=== PATIENT | female | born 1960 | race Caucasian/White ===

== ENCOUNTER 2020-06-01 09:59 | Inpatient (IN) | payer MEDICAID ==
[~2020-06-01] VITALS: Ht 160 cm; Wt 87.5 kg
[2020-06-01 10:58] LABS: CHLORIDE 109 mEq/L (98-107)
[2020-06-01 11:00] LABS: BASOPHILS % 0.9 % (0.0-2.0); EOSINOPHILS % 2.4 % (0.0-5.0); HEMATOCRIT. 24.9 % (36.0-48.0); HEMOGLOBIN. 8.1 g/dL (12.0-16.0); LYMPHOCYTES % 20.9 % (20.0-50.0); MEAN CORPUSCULAR HEMOGLOBIN 31.7 pg (28.0-32.0); MEAN CORPUSCULAR VOLUME 97.3 fL (81.0-99.0); MEAN PLATELET VOLUME 10.7 fl (7.4-10.4); MONOCYTES % 10.4 % (2.0-8.0); NEUTROPHILS % 65.4 % (40.0-76.0); PLATELET 123 x1000/uL (130-400); RED BLOOD CELL COUNT 2.56 mill/uL (4.2-5.4); RED CELL DISTRIBUTION WIDTH 18.4 % (11.6-14.6)
[2020-06-01 11:02] LABS: ETHANOL BLOOD < 10 mg/dL
[2020-06-01 11:30] LABS: INR 1.4; PROTHROMBIN TIME 14.7 sec (9.6-11.0)
[2020-06-01] MEDS ORDERED: LACTULOSE 20G/30ML UDC NG ONE (11:30)
[2020-06-01] MEDS ORDERED: ONDANSETRON HCL 4MG/2ML INJ IV PRN (13:30)
[2020-06-01] MEDS ORDERED: LORAZEPAM 2MG/ML CPJ IV PRN (13:30)
[2020-06-01] MEDS: DEXT 5%/0.45% NACL 1000ML 1,000 ML IV SCH ×2 (13:51→23:55)
[2020-06-01] MEDS: ENOXAPARIN 40MG/0.4ML SYR SUBCUT SCH (14:00)
[2020-06-01] MEDS: LACTULOSE 20G/30ML UDC PO SCH ×2 (14:00→23:54)
[2020-06-01] MEDS: LEVETIRACETAM 500MG PREMIX 100 ML IV SCH ×2 (15:00→23:00)
[2020-06-01 21:26] VITALS: BP 118/81
[2020-06-01 21:30] VITALS: BP 118/81
[2020-06-01] MEDS ORDERED: PANT40TA4 PO (21:59)
[2020-06-01] MEDS ORDERED: SODI1TAB3 PO (21:59)
[2020-06-01] MEDS ORDERED: SPIR25TA6 PO (21:59)
[2020-06-01] MEDS ORDERED: MEGE400O23 PO (21:59)
[2020-06-01] MEDS ORDERED: FURO40TA5 PO (21:59)
[2020-06-01] MEDS ORDERED: LACT1CAP68 PO (21:59)
[2020-06-01] MEDS ORDERED: CLON0.1T PO (21:59)
[2020-06-01] MEDS ORDERED: TOPI50TA24 PO (21:59)
[2020-06-01] MEDS ORDERED: LACT10SO30 PO (21:59)
[2020-06-01] MEDS ORDERED: SODI650T PO (21:59)
[2020-06-01] MEDS ORDERED: [UNRECOGNIZED DRUG - CODE] PO (21:59)
[2020-06-01] MEDS ORDERED: PROP10TA10 PO (21:59)
[2020-06-01] MEDS ORDERED: MAGN400C PO (21:59)
[2020-06-01] MEDS ORDERED: RIFA550T PO (21:59)
[2020-06-01] MEDS ORDERED: LEVO75TA7 PO (21:59)
[2020-06-01] MEDS ORDERED: CLOB60CR4 TP (21:59)
[2020-06-01] MEDS ORDERED: FAMO20TA8 PO (21:59)
[2020-06-01] MEDS ORDERED: TOPUD PO (21:59)
[2020-06-01] MEDS ORDERED: LEVE500T19 PO (21:59)
[2020-06-01] MEDS ORDERED: DEXTROSE 50% WATER 50ML SYRINGE IV PRN (23:15)
[2020-06-02] VITALS: BP 131/73
[2020-06-02] MEDS: LACTULOSE 20G/30ML UDC PO SCH ×3 (05:58→23:07)
[2020-06-02] MEDS: BLOOD SUGAR DIAGNOSTIC STRIP TEST SCH ×4 (06:22→21:30)
[2020-06-02] MEDS: INSULIN LISPRO 100 UNITS/ML SUBCUT SCH ×4 (07:40→21:00)
[2020-06-02 07:46] LABS: BASOPHILS % 1.1 % (0.0-2.0); EOSINOPHILS % 2.8 % (0.0-5.0); HEMATOCRIT. 24.1 % (36.0-48.0); LYMPHOCYTES % 17.9 % (20.0-50.0); MEAN CORPUSCULAR HEMOGLOBIN 32.6 pg (28.0-32.0); MEAN CORPUSCULAR VOLUME 98.2 fL (81.0-99.0); MEAN PLATELET VOLUME 10.4 fl (7.4-10.4); MONOCYTES % 10.8 % (2.0-8.0); NEUTROPHILS % 67.4 % (40.0-76.0); PLATELET 114 x1000/uL (130-400); RED BLOOD CELL COUNT 2.45 mill/uL (4.2-5.4); RED CELL DISTRIBUTION WIDTH 18.9 % (11.6-14.6)
[2020-06-02 07:50] LABS: CHLORIDE 113 mEq/L (98-107)
[2020-06-02 08:00] VITALS: BP 141/101
[2020-06-02] MEDS: LEVETIRACETAM 500MG PREMIX 100 ML IV SCH (10:24)
[2020-06-02 12:00] VITALS: BP 134/75
[2020-06-02] MEDS ORDERED: POTASSIUM CHLORIDE 20MEQ TABLET SR PO NR (13:00)
[2020-06-02] MEDS: DEXT 5%/0.9% NACL 1,000 ML IV SCH (13:01)
[2020-06-02] MEDS: ENOXAPARIN 40MG/0.4ML SYR SUBCUT SCH (13:30)
[2020-06-02] MEDS ORDERED: POTASSIUM CHLORIDE 20MEQ/PACKET PO NR (14:00)
[2020-06-02] MEDS ORDERED: LACTULOSE 300 ML in WATER FOR IRRIGATION,STERILE 700 ML IR NR (14:30)
[2020-06-02 16:00] VITALS: BP 138/86
[2020-06-02 20:00] VITALS: BP 140/60
[2020-06-02] MEDS: RIFAXIMIN 550 MG TABLET PO SCH (23:06)
[2020-06-03] VITALS (9 sets, daily range): BP systolic 122–148; BP diastolic 55–80
[2020-06-03] MEDS ORDERED: LEVETIRACETAM 500MG PREMIX 100 ML IV SCH
[2020-06-03] MEDS: LEVETIRACETAM 500MG PREMIX 100 ML IV SCH ×2 (00:58→14:11)
[2020-06-03] MEDS: LACTULOSE 20G/30ML UDC PO SCH ×3 (06:07→21:15)
[2020-06-03] MEDS: INSULIN LISPRO 100 UNITS/ML SUBCUT SCH ×4 (06:15→20:40)
[2020-06-03] MEDS: BLOOD SUGAR DIAGNOSTIC STRIP TEST SCH ×4 (06:15→20:40)
[2020-06-03] MEDS: DEXT 5%/0.9% NACL 1,000 ML IV SCH ×2 (06:15→08:45)
[2020-06-03] MEDS: RIFAXIMIN 550 MG TABLET PO SCH ×2 (09:00→21:15)
[2020-06-03 11:08] LABS: BASOPHILS % 0.8 % (0.0-2.0); EOSINOPHILS % 2.8 % (0.0-5.0); HEMATOCRIT. 21.6 % (36.0-48.0); MEAN CORPUSCULAR HEMOGLOBIN 32.2 pg (28.0-32.0); MEAN CORPUSCULAR VOLUME 99.6 fL (81.0-99.0); MEAN PLATELET VOLUME 9.8 fl (7.4-10.4); MONOCYTES % 12.4 % (2.0-8.0); PLATELET 87 x1000/uL (130-400); RED BLOOD CELL COUNT 2.17 mill/uL (4.2-5.4); RED CELL DISTRIBUTION WIDTH 19.4 % (11.6-14.6)
[2020-06-03] MEDS ORDERED: POTASSIUM CHLORIDE 20MEQ TABLET SR PO SCH (13:15)
[2020-06-03] MEDS: ENOXAPARIN 40MG/0.4ML SYR SUBCUT SCH (14:12)
[2020-06-03] MEDS: SODIUM CHLORIDE 0.45% 1,000 ML IV SCH (17:40)
[2020-06-03] MEDS: NYSTATIN POWDER 15GM TOP SCH (17:40)
[2020-06-04] VITALS (9 sets, daily range): BP systolic 116–153; BP diastolic 57–78
[2020-06-04] MEDS: LEVETIRACETAM 500MG PREMIX 100 ML IV SCH ×2 (02:20→14:16)
[2020-06-04] MEDS: BLOOD SUGAR DIAGNOSTIC STRIP TEST SCH ×4 (06:13→20:58)
[2020-06-04] MEDS: INSULIN LISPRO 100 UNITS/ML SUBCUT SCH ×4 (06:13→20:58)
[2020-06-04] MEDS: LACTULOSE 20G/30ML UDC PO SCH ×3 (06:29→21:00)
[2020-06-04] MEDS: NYSTATIN POWDER 15GM TOP SCH ×2 (09:18→18:02)
[2020-06-04] MEDS: THIAMINE HCL 100MG TABLET PO SCH (09:18)
[2020-06-04] MEDS: FOLIC ACID 1MG TABLET PO SCH (09:18)
[2020-06-04] MEDS: RIFAXIMIN 550 MG TABLET PO SCH ×2 (09:18→20:58)
[2020-06-04] MEDS: SODIUM CHLORIDE 0.45% 1,000 ML IV SCH ×2 (09:19→22:07)
[2020-06-04] MEDS: MULTIVITAMINS,THER W-MINERALS TABLET PO SCH (09:23)
[2020-06-04 10:03] LABS: CHLORIDE 120 mEq/L (98-107)
[2020-06-04 10:07] LABS: PHOSPHORUS 2.3 mg/dL (2.5-4.9)
[2020-06-04 12:06] LABS: HEMATOCRIT. 25.8 % (36.0-48.0); HEMOGLOBIN. 8.4 g/dL (12.0-16.0); MEAN CORPUSCULAR VOLUME 97.9 fL (81.0-99.0); MEAN PLATELET VOLUME 9.7 fl (7.4-10.4); PLATELET 86 x1000/uL (130-400); RED BLOOD CELL COUNT 2.63 mill/uL (4.2-5.4); RED CELL DISTRIBUTION WIDTH 19.6 % (11.6-14.6)
[2020-06-04] MEDS ORDERED: MAGNESIUM 4 G PREMIX 100 ML IV SCH (14:00)
[2020-06-04] MEDS: ENOXAPARIN 40MG/0.4ML SYR SUBCUT SCH (14:16)
[2020-06-04 20:01] LABS: PLATELET ESTIMATE DECREASED
[2020-06-05] VITALS: BP 121/49
[2020-06-05] MEDS: LEVETIRACETAM 500MG PREMIX 100 ML IV SCH ×2 (01:08→14:03)
[2020-06-05 04:00] VITALS: BP 125/68
[2020-06-05 06:07] LABS: HEMATOCRIT. 24.2 % (36.0-48.0); HEMOGLOBIN. 7.9 g/dL (12.0-16.0); MEAN CORPUSCULAR HEMOGLOBIN 31.9 pg (28.0-32.0); MEAN CORPUSCULAR VOLUME 97.1 fL (81.0-99.0); MEAN PLATELET VOLUME 8.9 fl (7.4-10.4); PLATELET 89 x1000/uL (130-400); RED BLOOD CELL COUNT 2.49 mill/uL (4.2-5.4); RED CELL DISTRIBUTION WIDTH 19.5 % (11.6-14.6)
[2020-06-05] MEDS: BLOOD SUGAR DIAGNOSTIC STRIP TEST SCH ×4 (06:25→20:42)
[2020-06-05 06:32] LABS: CHLORIDE 115 mEq/L (98-107)
[2020-06-05] MEDS: LACTULOSE 20G/30ML UDC PO SCH ×3 (06:36→21:45)
[2020-06-05] MEDS: INSULIN LISPRO 100 UNITS/ML SUBCUT SCH ×4 (06:50→21:00)
[2020-06-05 07:46] VITALS: BP 122/59
[2020-06-05] MEDS: MULTIVITAMINS,THER W-MINERALS TABLET PO SCH (09:18)
[2020-06-05] MEDS: NYSTATIN POWDER 15GM TOP SCH ×2 (09:18→19:29)
[2020-06-05] MEDS: FOLIC ACID 1MG TABLET PO SCH (09:18)
[2020-06-05] MEDS: RIFAXIMIN 550 MG TABLET PO SCH ×2 (09:18→20:42)
[2020-06-05] MEDS: THIAMINE HCL 100MG TABLET PO SCH (09:18)
[2020-06-05 12:00] VITALS: BP 119/74
[2020-06-05] MEDS: ENOXAPARIN 40MG/0.4ML SYR SUBCUT SCH (14:00)
[2020-06-05 14:22] LABS: PLATELET ESTIMATE DECREASED
[2020-06-05 16:00] VITALS: BP 135/80
[2020-06-05 20:00] VITALS: BP 110/59
[2020-06-06] VITALS: BP 133/79
[2020-06-06] MEDS: LEVETIRACETAM 500MG PREMIX 100 ML IV SCH ×2 (01:16→13:50)
[2020-06-06 04:00] VITALS: BP 124/74
[2020-06-06] MEDS: BLOOD SUGAR DIAGNOSTIC STRIP TEST SCH ×3 (06:20→18:02)
[2020-06-06] MEDS: LACTULOSE 20G/30ML UDC PO SCH ×2 (06:20→13:50)
[2020-06-06] MEDS: INSULIN LISPRO 100 UNITS/ML SUBCUT SCH ×3 (06:21→17:40)
[2020-06-06 06:34] LABS: CHLORIDE 111 mEq/L (98-107)
[2020-06-06 06:58] LABS: HEMATOCRIT. 23.2 % (36.0-48.0); HEMOGLOBIN. 7.8 g/dL (12.0-16.0); MEAN CORPUSCULAR HEMOGLOBIN 32.2 pg (28.0-32.0); MEAN CORPUSCULAR VOLUME 96.4 fL (81.0-99.0); PLATELET 93 x1000/uL (130-400); RED BLOOD CELL COUNT 2.41 mill/uL (4.2-5.4)
[2020-06-06 07:54] VITALS: BP 138/66
[2020-06-06] MEDS: MULTIVITAMINS,THER W-MINERALS TABLET PO SCH (10:04)
[2020-06-06] MEDS: NYSTATIN POWDER 15GM TOP SCH (10:04)
[2020-06-06] MEDS: RIFAXIMIN 550 MG TABLET PO SCH (10:04)
[2020-06-06] MEDS: THIAMINE HCL 100MG TABLET PO SCH (10:04)
[2020-06-06] MEDS: FOLIC ACID 1MG TABLET PO SCH (10:04)
[2020-06-06 11:44] VITALS: BP 128/74
[2020-06-06] MEDS: ENOXAPARIN 40MG/0.4ML SYR SUBCUT SCH (14:00)
[2020-06-06 15:41] LABS: PLATELET ESTIMATE DECREASED
[2020-06-06 16:00] VITALS: BP 139/79
[2020-06-06 16:58] VITALS: BP 139/79
== END 2020-06-06 18:44 | DRG 279 ==
LOC: EDBD 09:59 → ER 09:59 → EDBEDREQ 13:14 → 8WST 16:48 → EDBEDREQ 16:57 → ENRESERV 20:59
PROVIDERS: ADMIT Internal Medicine; ATTEND Internal Medicine
PROC: 30233N1 Transfusion of Nonautologous Red Blood Cells into Peripheral Vein, Percutaneous Approach (ICD-10-PCS; principal; 2020-06-03)
DX: K72.90 Hepatic failure, unspecified without coma (principal); K74.60 Unspecified cirrhosis of liver; G92 Toxic encephalopathy; G40.909 Epilepsy, unspecified, not intractable, without status epilepticus; K80.20 Calculus of gallbladder without cholecystitis without obstruction; E72.20 Disorder of urea cycle metabolism, unspecified; D69.6 Thrombocytopenia, unspecified; E11.22 Type 2 diabetes mellitus with diabetic chronic kidney disease; I12.9 Hypertensive chronic kidney disease with stage 1 through stage 4 chronic kidney disease, or unspecified chronic kidney disease; R74.0 Nonspecific elevation of levels of transaminase and lactic acid dehydrogenase [LDH]; D50.9 Iron deficiency anemia, unspecified; R90.82 White matter disease, unspecified; I73.00 Raynaud's syndrome without gangrene; E46 Unspecified protein-calorie malnutrition; N18.9 Chronic kidney disease, unspecified; Z68.34 Body mass index [BMI] 34.0-34.9, adult; Z79.890 Hormone replacement therapy; N17.9 Acute kidney failure, unspecified
CPT/HCPCS: 36415; 70551; 71045; 76700; 80048; 80053; 80320; 82040; 82140; 82962; 83036; 83605; 83735; 84100; 84134; 84145; 84484; 85025; 86850; 86900; 86920; 92610; 93005; 93970; 96365; 97162; 99285; J1650; J1953; J3475; J7042; P9016; G0480

== ENCOUNTER 2020-06-14 19:23 | Inpatient (IN) | payer MEDICAID ==
[~2020-06-14] VITALS: Ht 170.2 cm; Wt 69.5 kg
[~2020-06-14 19:23] MED LIST: CLOB60CR4 TP; CLON0.1T PO; FAMO20TA8 PO; FURO40TA5 PO; LACT10SO30 PO; LACT1CAP68 PO; LEVE500T19 PO; LEVO75TA7 PO; MAGN400C PO; MEGE400O23 PO; PANT40TA4 PO; PROP10TA10 PO; RIFA550T PO; SODI1TAB3 PO; SODI650T PO; SPIR25TA6 PO; TOPI50TA24 PO; [UNRECOGNIZED DRUG - CODE] PO
[2020-06-14 21:02] LABS: BASOPHILS % 0.9 % (0.0-2.0); EOSINOPHILS % 3.8 % (0.0-5.0); HEMATOCRIT. 29.5 % (36.0-48.0); HEMOGLOBIN. 9.4 g/dL (12.0-16.0); MEAN CORPUSCULAR HEMOGLOBIN 31.5 pg (28.0-32.0); MEAN CORPUSCULAR VOLUME 99.1 fL (81.0-99.0); MEAN PLATELET VOLUME 10.2 fl (7.4-10.4); MONOCYTES % 13.2 % (2.0-8.0); NEUTROPHILS % 59.1 % (40.0-76.0); PLATELET 127 x1000/uL (130-400); RED BLOOD CELL COUNT 2.98 mill/uL (4.2-5.4); RED CELL DISTRIBUTION WIDTH 20.4 % (11.6-14.6)
[2020-06-14 21:12] LABS: CHLORIDE 115 mEq/L (98-107); INR 1.4; PROTHROMBIN TIME 14.3 sec (9.6-11.0)
[2020-06-14 21:55] LABS: CLARITY URINE CLOUDY (CLEAR); COLOR URINE YELLOW (YELLOW); KETONES URINE NEGATIVE (NEGATIVE); LEUKOCYTE ESTERASE URINE 3+ (NEGATIVE); NITRITE URINE NEGATIVE (NEGATIVE); OCCULT BLOOD URINE 1+ (NEGATIVE); PROTEIN URINE NEGATIVE (NEGATIVE); SPECIFIC GRAVITY URINE 1.017 (1.005-1.030)
[2020-06-14 22:52] LABS: BG BASE EXCESS -1.2 mmol/L (-2.0-2.0); BG CARBOXYHEMOGLOBIN 0.3 % (0.5-1.5); BG DEOXYHEMOGLOBIN 2.5 % (0.0-5.0); BG FRACTION INSPIRED OXYGEN 21; BG HCO3 ACT 21.2 mmol/L (22.0-26.0); BG METHEMOGLOBIN 0.3 % (0.0-1.5); BG OXYGEN SATURATION 97.5 % (92.0-98.5); BG OXYHEMOGLOBIN 96.9 % (94.0-97.0); BG PCO2 27.8 mmHg (35.0-45.0); BG PO2 99.9 mmHg (75.0-100.0); BG SAMPLE SITE RIGHT BRACHIAL; BG TOTAL HEMOGLOBIN 10.2 g/dL (12.0-18.0); BG VENT MODE ROOM AIR
[2020-06-14] MEDS ORDERED: LACTULOSE 20G/30ML UDC PR NR (23:15)
[2020-06-14] MEDS ORDERED: CEFTRIAXONE 1 G PREMIX 50 ML IV NR (23:15)
[2020-06-15 04:00] VITALS: BP 152/80
[2020-06-15 04:25] VITALS: BP 152/80
[2020-06-15] MEDS ORDERED: DEXTROSE 50% WATER 50ML SYRINGE IV PRN (06:30)
[2020-06-15] MEDS: BLOOD SUGAR DIAGNOSTIC STRIP TEST SCH ×4 (07:32→21:30)
[2020-06-15] MEDS: INSULIN LISPRO 100 UNITS/ML SUBCUT SCH ×4 (07:32→21:00)
[2020-06-15] MEDS: LEVOTHYROXINE SODIUM 75MCG TABLET PO SCH (07:51)
[2020-06-15 08:00] VITALS: BP 130/70
[2020-06-15] MEDS: MAGNESIUM OXIDE 400MG TABLET PO SCH (09:18)
[2020-06-15] MEDS: LEVETIRACETAM 500MG TABLET PO SCH ×2 (09:18→21:32)
[2020-06-15] MEDS: CALCIUM CARBONATE 1250MG TABLET (500MG ELEMENTAL CALCIUM) PO SCH (09:18)
[2020-06-15] MEDS: SPIRONOLACTONE 25MG TABLET PO SCH ×2 (09:19→21:33)
[2020-06-15] MEDS: FUROSEMIDE 40MG TABLET PO SCH ×2 (09:19→21:32)
[2020-06-15] MEDS: TOPIRAMATE 25MG TABLET PO SCH (09:19)
[2020-06-15] MEDS: PROPRANOLOL HCL 10MG TABLET PO SCH ×2 (09:19→21:48)
[2020-06-15 12:00] VITALS: BP 139/67
[2020-06-15] MEDS: PANTOPRAZOLE 40MG DR TABLET PO SCH (12:17)
[2020-06-15 15:34] LABS: HEPATITIS B SURFACE ANTIGEN NEGATIVE
[2020-06-15] MEDS: LACTULOSE 20G/30ML UDC PO SCH ×2 (15:53→21:30)
[2020-06-15 16:00] VITALS: BP 139/80
[2020-06-15 16:05] LABS: HEPATITIS A AB IGM NEGATIVE (NEGATIVE)
[2020-06-15 20:24] VITALS: BP 135/94
[2020-06-15] MEDS: CEFTRIAXONE 1,000 MG in DEXTROSE 5% WATER 50 ML IV SCH (20:56)
[2020-06-15] MEDS ORDERED: FAMOTIDINE 20MG TABLET PO SCH (21:00)
[2020-06-15] MEDS: RIFAXIMIN 550 MG TABLET PO SCH (21:33)
[2020-06-16] VITALS: BP 159/77
[2020-06-16 04:00] VITALS: BP 129/69
[2020-06-16] MEDS: LACTULOSE 20G/30ML UDC PO SCH ×3 (05:44→21:17)
[2020-06-16] MEDS: INSULIN LISPRO 100 UNITS/ML SUBCUT SCH ×3 (07:48→21:00)
[2020-06-16] MEDS: BLOOD SUGAR DIAGNOSTIC STRIP TEST SCH ×3 (07:48→21:00)
[2020-06-16 08:00] VITALS: BP 132/74
[2020-06-16] MEDS: CALCIUM CARBONATE 1250MG TABLET (500MG ELEMENTAL CALCIUM) PO SCH (08:24)
[2020-06-16] MEDS: MAGNESIUM OXIDE 400MG TABLET PO SCH (08:24)
[2020-06-16] MEDS: PANTOPRAZOLE 40MG DR TABLET PO SCH (08:24)
[2020-06-16] MEDS: LEVETIRACETAM 500MG TABLET PO SCH ×2 (08:24→21:16)
[2020-06-16] MEDS: RIFAXIMIN 550 MG TABLET PO SCH ×2 (08:24→21:15)
[2020-06-16] MEDS: PROPRANOLOL HCL 10MG TABLET PO SCH ×2 (08:25→21:15)
[2020-06-16] MEDS: FUROSEMIDE 40MG TABLET PO SCH ×2 (08:25→21:16)
[2020-06-16] MEDS: TOPIRAMATE 25MG TABLET PO SCH (08:25)
[2020-06-16] MEDS: SPIRONOLACTONE 25MG TABLET PO SCH ×2 (08:26→21:16)
[2020-06-16] MEDS: LEVOTHYROXINE SODIUM 75MCG TABLET PO SCH (08:26)
[2020-06-16 10:01] LABS: INR 1.3; PROTHROMBIN TIME 13.5 sec (9.6-11.0)
[2020-06-16] MEDS ORDERED: VANCOMYCIN 1500MG in DEXTROSE 5% WATER 250ML IV NR (12:00)
[2020-06-16 16:00] VITALS: BP_SYST 121; BP_SYST 129; BP_DIAS 57; BP_DIAS 74
[2020-06-16 20:17] VITALS: BP 105/59
[2020-06-16] MEDS: CEFTRIAXONE 1,000 MG in DEXTROSE 5% WATER 50 ML IV SCH (21:14)
[2020-06-17] VITALS (7 sets, daily range): BP systolic 105–137; BP diastolic 59–77
[2020-06-17] MEDS: VANCOMYCIN 1 G PREMIX 200 ML IV SCH ×2 (01:17→12:16)
[2020-06-17] MEDS: LACTULOSE 20G/30ML UDC PO SCH ×3 (05:44→21:26)
[2020-06-17] MEDS: BLOOD SUGAR DIAGNOSTIC STRIP TEST SCH ×4 (05:50→21:27)
[2020-06-17 06:58] LABS: HEMATOCRIT. 28.7 % (36.0-48.0); HEMOGLOBIN. 9.3 g/dL (12.0-16.0); MEAN CORPUSCULAR HEMOGLOBIN 32.6 pg (28.0-32.0); MEAN CORPUSCULAR VOLUME 100.5 fL (81.0-99.0); MEAN PLATELET VOLUME 10.3 fl (7.4-10.4); PLATELET 105 x1000/uL (130-400); RED BLOOD CELL COUNT 2.85 mill/uL (4.2-5.4); RED CELL DISTRIBUTION WIDTH 20.5 % (11.6-14.6)
[2020-06-17 07:18] LABS: INR 1.4; PROTHROMBIN TIME 14.4 sec (9.6-11.0)
[2020-06-17] MEDS: INSULIN LISPRO 100 UNITS/ML SUBCUT SCH ×4 (07:50→21:00)
[2020-06-17] MEDS: LEVETIRACETAM 500MG TABLET PO SCH ×2 (09:23→21:25)
[2020-06-17] MEDS: TOPIRAMATE 25MG TABLET PO SCH (09:23)
[2020-06-17] MEDS: LEVOTHYROXINE SODIUM 75MCG TABLET PO SCH (09:23)
[2020-06-17] MEDS: CALCIUM CARBONATE 1250MG TABLET (500MG ELEMENTAL CALCIUM) PO SCH (09:23)
[2020-06-17] MEDS: MAGNESIUM OXIDE 400MG TABLET PO SCH (09:23)
[2020-06-17] MEDS: PANTOPRAZOLE 40MG DR TABLET PO SCH (09:23)
[2020-06-17] MEDS: RIFAXIMIN 550 MG TABLET PO SCH ×2 (09:23→21:26)
[2020-06-17] MEDS: FUROSEMIDE 40MG TABLET PO SCH ×2 (09:24→21:26)
[2020-06-17] MEDS: SPIRONOLACTONE 25MG TABLET PO SCH ×2 (09:28→21:26)
[2020-06-17] MEDS: PROPRANOLOL HCL 10MG TABLET PO SCH ×2 (09:29→21:00)
[2020-06-17 10:18] LABS: PLATELET ESTIMATE DECREASED
[2020-06-17] MEDS: CEFTRIAXONE 1,000 MG in DEXTROSE 5% WATER 50 ML IV SCH (21:26)
[2020-06-18] VITALS: BP 112/68
[2020-06-18 04:00] VITALS: BP 112/74
[2020-06-18 06:32] LABS: INR 1.3; PROTHROMBIN TIME 13.8 sec (9.6-11.0)
[2020-06-18] MEDS: PANTOPRAZOLE 40MG DR TABLET PO SCH ×2 (06:50→09:18)
[2020-06-18] MEDS: LACTULOSE 20G/30ML UDC PO SCH ×3 (06:50→21:04)
[2020-06-18] MEDS: BLOOD SUGAR DIAGNOSTIC STRIP TEST SCH ×4 (06:51→21:02)
[2020-06-18] MEDS: LEVOTHYROXINE SODIUM 75MCG TABLET PO SCH (06:51)
[2020-06-18 06:52] LABS: BASOPHILS % 0.6 % (0.0-2.0); HEMATOCRIT. 28.7 % (36.0-48.0); HEMOGLOBIN. 9.5 g/dL (12.0-16.0); LYMPHOCYTES % 28.6 % (20.0-50.0); MEAN CORPUSCULAR HEMOGLOBIN 32.5 pg (28.0-32.0); MEAN CORPUSCULAR VOLUME 98.2 fL (81.0-99.0); MEAN PLATELET VOLUME 10.8 fl (7.4-10.4); MONOCYTES % 12.6 % (2.0-8.0); NEUTROPHILS % 53.2 % (40.0-76.0); PLATELET 115 x1000/uL (130-400); RED BLOOD CELL COUNT 2.92 mill/uL (4.2-5.4)
[2020-06-18] MEDS: INSULIN LISPRO 100 UNITS/ML SUBCUT SCH ×4 (07:40→21:00)
[2020-06-18 08:00] VITALS: BP 106/67
[2020-06-18] MEDS: SPIRONOLACTONE 25MG TABLET PO SCH ×2 (09:00→21:01)
[2020-06-18] MEDS: CALCIUM CARBONATE 1250MG TABLET (500MG ELEMENTAL CALCIUM) PO SCH (09:18)
[2020-06-18] MEDS: RIFAXIMIN 550 MG TABLET PO SCH ×2 (09:18→21:02)
[2020-06-18] MEDS: FUROSEMIDE 40MG TABLET PO SCH ×2 (09:18→21:01)
[2020-06-18] MEDS: PROPRANOLOL HCL 10MG TABLET PO SCH ×2 (09:18→20:31)
[2020-06-18] MEDS: TOPIRAMATE 25MG TABLET PO SCH (09:18)
[2020-06-18] MEDS: LEVETIRACETAM 500MG TABLET PO SCH ×2 (09:18→21:01)
[2020-06-18] MEDS: MAGNESIUM OXIDE 400MG TABLET PO SCH (09:18)
[2020-06-18 12:00] VITALS: BP 107/61
[2020-06-18 16:00] VITALS: BP 104/59
[2020-06-18 20:26] VITALS: BP 110/62
[2020-06-18] MEDS: CEFTRIAXONE 1,000 MG in DEXTROSE 5% WATER 50 ML IV SCH (21:02)
[2020-06-19] VITALS (7 sets, daily range): BP systolic 102–134; BP diastolic 60–76
[2020-06-19] MEDS: LEVOTHYROXINE SODIUM 75MCG TABLET PO SCH (06:47)
[2020-06-19] MEDS: LACTULOSE 20G/30ML UDC PO SCH ×3 (06:47→20:57)
[2020-06-19] MEDS: BLOOD SUGAR DIAGNOSTIC STRIP TEST SCH ×4 (06:48→20:51)
[2020-06-19] MEDS: INSULIN LISPRO 100 UNITS/ML SUBCUT SCH ×4 (07:50→21:00)
[2020-06-19] MEDS: PROPRANOLOL HCL 10MG TABLET PO SCH ×2 (09:00→20:51)
[2020-06-19 09:52] LABS: INR 1.3; PROTHROMBIN TIME 13.9 sec (9.6-11.0)
[2020-06-19] MEDS: CALCIUM CARBONATE 1250MG TABLET (500MG ELEMENTAL CALCIUM) PO SCH (09:54)
[2020-06-19] MEDS: RIFAXIMIN 550 MG TABLET PO SCH ×2 (09:54→20:56)
[2020-06-19] MEDS: TOPIRAMATE 25MG TABLET PO SCH (09:54)
[2020-06-19] MEDS: SPIRONOLACTONE 25MG TABLET PO SCH ×2 (09:54→20:57)
[2020-06-19] MEDS: MAGNESIUM OXIDE 400MG TABLET PO SCH (09:55)
[2020-06-19] MEDS: LEVETIRACETAM 500MG TABLET PO SCH ×2 (09:55→20:56)
[2020-06-19] MEDS: FUROSEMIDE 40MG TABLET PO SCH ×2 (09:55→20:56)
[2020-06-19 11:33] LABS: HEMATOCRIT. 27.2 % (36.0-48.0); MEAN CORPUSCULAR HEMOGLOBIN 32.8 pg (28.0-32.0); MEAN CORPUSCULAR VOLUME 99.2 fL (81.0-99.0); MEAN PLATELET VOLUME 10.3 fl (7.4-10.4); PLATELET 104 x1000/uL (130-400); RED BLOOD CELL COUNT 2.75 mill/uL (4.2-5.4)
[2020-06-19 14:06] LABS: PLATELET ESTIMATE DECREASED
[2020-06-20 00:29] VITALS: BP 101/58
[2020-06-20 04:27] VITALS: BP 98/54
[2020-06-20 06:18] LABS: INR 1.3; PROTHROMBIN TIME 13.8 sec (9.6-11.0)
[2020-06-20] MEDS: LEVOTHYROXINE SODIUM 75MCG TABLET PO SCH (06:46)
[2020-06-20] MEDS: PANTOPRAZOLE 40MG DR TABLET PO SCH (06:46)
[2020-06-20] MEDS: BLOOD SUGAR DIAGNOSTIC STRIP TEST SCH ×2 (06:47→13:01)
[2020-06-20] MEDS: LACTULOSE 20G/30ML UDC PO SCH (06:47)
[2020-06-20 06:53] LABS: BASOPHILS % 1.1 % (0.0-2.0); EOSINOPHILS % 5.6 % (0.0-5.0); HEMATOCRIT. 25.1 % (36.0-48.0); HEMOGLOBIN. 8.2 g/dL (12.0-16.0); LYMPHOCYTES % 27.4 % (20.0-50.0); MEAN CORPUSCULAR HEMOGLOBIN 32.4 pg (28.0-32.0); MEAN CORPUSCULAR VOLUME 99.3 fL (81.0-99.0); MEAN PLATELET VOLUME 10.8 fl (7.4-10.4); MONOCYTES % 14.2 % (2.0-8.0); NEUTROPHILS % 51.7 % (40.0-76.0); PLATELET 100 x1000/uL (130-400); RED BLOOD CELL COUNT 2.52 mill/uL (4.2-5.4); RED CELL DISTRIBUTION WIDTH 19.4 % (11.6-14.6)
[2020-06-20] MEDS: INSULIN LISPRO 100 UNITS/ML SUBCUT SCH ×2 (07:50→12:50)
[2020-06-20 08:00] VITALS: BP 134/71
[2020-06-20] MEDS: SPIRONOLACTONE 25MG TABLET PO SCH (09:42)
[2020-06-20] MEDS: RIFAXIMIN 550 MG TABLET PO SCH (09:42)
[2020-06-20] MEDS: CALCIUM CARBONATE 1250MG TABLET (500MG ELEMENTAL CALCIUM) PO SCH (09:42)
[2020-06-20] MEDS: FUROSEMIDE 40MG TABLET PO SCH (09:43)
[2020-06-20] MEDS: TOPIRAMATE 25MG TABLET PO SCH (09:43)
[2020-06-20] MEDS: MAGNESIUM OXIDE 400MG TABLET PO SCH (09:43)
[2020-06-20] MEDS: LEVETIRACETAM 500MG TABLET PO SCH (09:43)
[2020-06-20] MEDS: PROPRANOLOL HCL 10MG TABLET PO SCH (09:43)
[2020-06-20 12:00] VITALS: BP 110/62
[2020-06-20 14:49] VITALS: BP 110/62
== END 2020-06-20 16:19 | DRG 720 ==
LOC: ER 19:23 → 6WST 06-15 00:29 → ENRESERV 06-15 03:48
PROVIDERS: ADMIT Internal Medicine; ATTEND Internal Medicine
DX: A41.9 Sepsis, unspecified organism (principal); E43 Unspecified severe protein-calorie malnutrition; E03.9 Hypothyroidism, unspecified; E11.22 Type 2 diabetes mellitus with diabetic chronic kidney disease; E87.8 Other disorders of electrolyte and fluid balance, not elsewhere classified; G40.909 Epilepsy, unspecified, not intractable, without status epilepticus; I12.9 Hypertensive chronic kidney disease with stage 1 through stage 4 chronic kidney disease, or unspecified chronic kidney disease; K72.90 Hepatic failure, unspecified without coma; N18.9 Chronic kidney disease, unspecified; N39.0 Urinary tract infection, site not specified; K74.60 Unspecified cirrhosis of liver; J45.909 Unspecified asthma, uncomplicated; G93.89 Other specified disorders of brain; R32 Unspecified urinary incontinence; G92 Toxic encephalopathy; Z20.828 Contact with and (suspected) exposure to other viral communicable diseases; D53.9 Nutritional anemia, unspecified; D61.818 Other pancytopenia; E77.8 Other disorders of glycoprotein metabolism; Z79.899 Other long term (current) drug therapy; Z68.24 Body mass index [BMI] 24.0-24.9, adult; G93.41 Metabolic encephalopathy
CPT/HCPCS: 36415; 36600; 71045; 80048; 80053; 80076; 80202; 81003; 82140; 82375; 82728; 82805; 82962; 83036; 83540; 83550; 83605; 83735; 84484; 85025; 86705; 86709; 86803; 86850; 86900; 87077; 87186; 87340; 92610; 93005; 93970; 99285; J0696; J3370; J7060; U0003-CS

== ENCOUNTER 2020-06-20 17:57 | Inpatient (IN) | payer MEDICAID ==
[~2020-06-20] VITALS: Ht 162.6 cm; Wt 64.0 kg
[~2020-06-20 17:57] MED LIST changes: -CLOB60CR4 TP; -CLON0.1T PO; -LACT10SO30 PO; -LACT1CAP68 PO; -MEGE400O23 PO; -RIFA550T PO; -SODI1TAB3 PO; -SODI650T PO
[2020-06-20 20:18] LABS: BASOPHILS % 1.6 % (0.0-2.0); EOSINOPHILS % 4.5 % (0.0-5.0); HEMATOCRIT. 25.5 % (36.0-48.0); HEMOGLOBIN. 8.4 g/dL (12.0-16.0); LYMPHOCYTES % 25.9 % (20.0-50.0); MEAN CORPUSCULAR HEMOGLOBIN 32.6 pg (28.0-32.0); MEAN CORPUSCULAR VOLUME 98.7 fL (81.0-99.0); MEAN PLATELET VOLUME 10.7 fl (7.4-10.4); MONOCYTES % 13.8 % (2.0-8.0); NEUTROPHILS % 54.2 % (40.0-76.0); PLATELET 99 x1000/uL (130-400); RED BLOOD CELL COUNT 2.59 mill/uL (4.2-5.4); RED CELL DISTRIBUTION WIDTH 19.5 % (11.6-14.6)
[2020-06-21] MEDS ORDERED: RIFAXIMIN 550 MG TABLET PO SCH (01:30)
[2020-06-21] MEDS ORDERED: POTASSIUM CHLORIDE 20MEQ TABLET SR PO ONE (01:30)
[2020-06-21] MEDS: LACTULOSE 20G/30ML UDC PO SCH ×3 (06:59→21:33)
[2020-06-21] MEDS: TOPIRAMATE 25MG TABLET PO SCH (07:00)
[2020-06-21] MEDS ORDERED: CLONIDINE 0.1MG TABLET PO ONE (07:00)
[2020-06-21] MEDS ORDERED: FUROSEMIDE 40MG TABLET PO SCH (09:00)
[2020-06-21] MEDS: LEVETIRACETAM 500MG TABLET PO SCH ×2 (09:19→21:33)
[2020-06-21] MEDS: SPIRONOLACTONE 25MG TABLET PO SCH (09:30)
[2020-06-21] MEDS ORDERED: LEVOTHYROXINE SODIUM 75MCG TABLET PO ONE (10:30)
[2020-06-21] MEDS: POTASSIUM CHLORIDE INJ 40 MEQ in DEXT 5% WATER 250 ML IV NR ×2 (15:13→17:29)
[2020-06-21 17:40] LABS: BASOPHILS % 0.6 % (0.0-2.0); EOSINOPHILS % 3.4 % (0.0-5.0); HEMATOCRIT. 32.5 % (36.0-48.0); HEMOGLOBIN. 10.4 g/dL (12.0-16.0); LYMPHOCYTES % 17.4 % (20.0-50.0); MEAN CORPUSCULAR HEMOGLOBIN 32.4 pg (28.0-32.0); MEAN CORPUSCULAR VOLUME 100.8 fL (81.0-99.0); MEAN PLATELET VOLUME 10.1 fl (7.4-10.4); MONOCYTES % 11.4 % (2.0-8.0); NEUTROPHILS % 67.2 % (40.0-76.0); PLATELET 108 x1000/uL (130-400); RED BLOOD CELL COUNT 3.22 mill/uL (4.2-5.4); RED CELL DISTRIBUTION WIDTH 20.2 % (11.6-14.6)
[2020-06-21 17:48] LABS: CHLORIDE 110 mEq/L (98-107)
[2020-06-21 18:32] VITALS: BP 142/62
[2020-06-21 20:00] VITALS: BP 118/58
[2020-06-22] VITALS: BP 132/61
[2020-06-22 04:00] VITALS: BP 125/50
[2020-06-22] MEDS: LACTULOSE 20G/30ML UDC PO SCH ×3 (06:43→21:08)
[2020-06-22] MEDS: TOPIRAMATE 25MG TABLET PO SCH (06:43)
[2020-06-22 08:00] VITALS: BP 123/66
[2020-06-22] MEDS: SPIRONOLACTONE 25MG TABLET PO SCH (09:14)
[2020-06-22] MEDS: FUROSEMIDE 40MG TABLET PO SCH (09:14)
[2020-06-22] MEDS: LEVETIRACETAM 500MG TABLET PO SCH ×2 (09:14→21:08)
[2020-06-22 12:00] VITALS: BP 130/72
[2020-06-22] MEDS ORDERED: CEFTRIAXONE 1 G PREMIX 50 ML IV SCH (15:30)
[2020-06-22 16:00] VITALS: BP 111/68
[2020-06-22] MEDS ORDERED: CEFTRIAXONE 1,000 MG in DEXTROSE 5% WATER 50 ML IV SCH (18:00)
[2020-06-22] MEDS: NITROFURANTOIN MACROCRYSTAL 50MG CAPSULE PO SCH (18:17)
[2020-06-22 20:00] VITALS: BP 99/64
[2020-06-23] VITALS: BP 122/72
[2020-06-23] MEDS: NITROFURANTOIN MACROCRYSTAL 50MG CAPSULE PO SCH ×4 (01:05→19:00)
[2020-06-23 04:00] VITALS: BP 135/69
[2020-06-23 06:37] LABS: CHLORIDE 108 mEq/L (98-107)
[2020-06-23] MEDS: LACTULOSE 20G/30ML UDC PO SCH ×2 (06:45→13:01)
[2020-06-23] MEDS: TOPIRAMATE 25MG TABLET PO SCH (06:45)
[2020-06-23 06:53] LABS: BASOPHILS % 1.1 % (0.0-2.0); EOSINOPHILS % 4.1 % (0.0-5.0); HEMATOCRIT. 25.2 % (36.0-48.0); HEMOGLOBIN. 8.3 g/dL (12.0-16.0); LYMPHOCYTES % 23.3 % (20.0-50.0); MEAN CORPUSCULAR HEMOGLOBIN 32.2 pg (28.0-32.0); MEAN CORPUSCULAR VOLUME 97.9 fL (81.0-99.0); MONOCYTES % 14.4 % (2.0-8.0); NEUTROPHILS % 57.1 % (40.0-76.0); PLATELET 89 x1000/uL (130-400); RED BLOOD CELL COUNT 2.57 mill/uL (4.2-5.4); RED CELL DISTRIBUTION WIDTH 19.5 % (11.6-14.6)
[2020-06-23 08:00] VITALS: BP 117/68
[2020-06-23] MEDS: FUROSEMIDE 40MG TABLET PO SCH (08:38)
[2020-06-23] MEDS: SPIRONOLACTONE 25MG TABLET PO SCH (08:38)
[2020-06-23] MEDS: LEVETIRACETAM 500MG TABLET PO SCH ×2 (08:38→20:57)
[2020-06-23 12:00] VITALS: BP 137/78
[2020-06-23 16:00] VITALS: BP 118/66
[2020-06-23 21:13] VITALS: BP 127/76
== END 2020-06-23 21:14 | DRG 425 ==
LOC: ER 18:41 → 6EST 06-21 13:40 → ENRESERV 06-21 16:50
PROVIDERS: ADMIT Internal Medicine; ATTEND Internal Medicine
DX: E87.6 Hypokalemia (principal); K74.60 Unspecified cirrhosis of liver; G40.909 Epilepsy, unspecified, not intractable, without status epilepticus; D61.818 Other pancytopenia; E43 Unspecified severe protein-calorie malnutrition; J45.909 Unspecified asthma, uncomplicated; E11.9 Type 2 diabetes mellitus without complications; N39.0 Urinary tract infection, site not specified; E87.8 Other disorders of electrolyte and fluid balance, not elsewhere classified; E03.9 Hypothyroidism, unspecified; K72.90 Hepatic failure, unspecified without coma; Z87.440 Personal history of urinary (tract) infections; Z79.899 Other long term (current) drug therapy; Z68.24 Body mass index [BMI] 24.0-24.9, adult
CPT/HCPCS: 36415; 80048; 80053; 80076; 85025; 97162; 99285; J0696; J3480; J7060